=== PATIENT | male | born 2000 | race Caucasian/White ===

== ENCOUNTER 2024-07-01 08:25 | Emergency (ER) | payer OTHER, SELFPAY ==
[2024-07-01] VITALS (8 sets, daily range): BP systolic 84–109; BP diastolic 46–62; PULSE 98–134; RESP 14–18; TEMP 36.6–36.9; O2SAT 96–100; BMI 25.1
--- NOTE | 2024-07-01 | ECG_ITS ---
Test Reason : seizure Blood Pressure : */* mmHG Vent. Rate : 115 BPM Atrial Rate : 115 BPM P-R Int : 118 ms QRS Dur : 78 ms QT Int : 314 ms P-R-T Axes : 41 93 67 degrees QTcB Int : 434 ms Sinus tachycardia Rightward axis Borderline ECG No previous ECGs available Referred By: Generic ED Physician Electronically Signed By: Lopez Borden
--- NOTE | ~2024-07-01 | XR_ITS ---
EXAMINATION: XR CHEST CLINICAL INFORMATION: Seizure COMPARISON: None available. TECHNIQUE: Frontal view of the chest was obtained. FINDINGS: No consolidation, pleural effusion or pneumothorax. No hyperinflation. Cardiomediastinal silhouette is normal in size. S-shaped curvature of the cervical thoracic spine which could be positional. XR/XR chest 1V IMPRESSION: No acute airspace disease. No acute fractures. Electronically signed by: Saqib Ramirez MD 07/01/2024 09:54 AM ROEL
--- NOTE | 2024-07-01 08:39 | ED_ITS ---
HPI - Seizure General Chief Complaint: Seizure Stated Complaint: SZ,POST ICTAL,HR 150 PER EMS Time Seen by Provider: 07/01/24 08:37 Source: patient, EMS, RN notes reviewed and old records reviewed Mode of arrival: EMS History of Present Illness ED Provider: Erika Everett PA-C HPI Narrative: 24-year-old male with a past medical history of autism, seizures on Lamictal, presenting to the ED via EMS s/p witnessed tonic-clonic seizure in van on way to daycare [employer]. Per EMS seizure lasted about 5 minutes without tongue biting or incontinence. No reported trauma/head injury. Patient denies complaints at present. Most history obtained from patient's parents who report is difficult to say if patient is compliant with medications, and mother is almost certain patient did not take medications this morning. Denies recent illness including fever, chills, cough, abdominal pain, nausea/vomiting, injury. Related Data Allergies Allergy/AdvReac Type Severity Reaction Status Date / Time No Known Allergies Allergy Verified 07/01/24 08:31 [No Known Allergies*] Review of Systems 2 Review of Systems: Yes all other systems are reviewed and are negative Constitutional: Constitutional: Reports as per [facility] Past Medical History Attestation statement: The following information was validated with the patient. Source: old records reviewed Social History Social History Advance Directives: No Advance Directives Information Provided: No Do you have a plan to hurt others: No Plan Physical Exam 2 Vital Signs: Vital Signs: Last Vital Signs Temp 98.2 F 07/01/24 10:32 Pulse 98 07/01/24 10:32 Resp 18 07/01/24 10:32 BP 109/54 L 07/01/24 10:32 Pulse Ox 100 07/01/24 10:32 O2 Del Method Room Air 07/01/24 10:32 BMI result Body Mass Index 25.1 Const: General: cooperative, healthy appearing and no acute distress O rientation/consciousness: oriented to person and oriented to time L imitations: no limitations HEENT: Head: Yes normal to inspection and Yes atraumatic Ears: hearing grossly normal bilaterally General nose exam: Normal external nose present Face and sinus: Yes normal facial exam Mouth: Normal oral and palatal mucosa present Throat: Yes posterior oropharynx normal, Yes tonsils normal, Yes uvula midline and No peritonsillar mass Eyes: General: appearance normal, both eyes and all related structures P upils: Equal, round and reactive pupils present EOM: EOMs intact bilaterally Neck: Neck: Yes normal visual inspection and Yes no meningeal signs Resp: Effort & Inspection: normal respiratory effort and no respiratory distress Auscultation: clear to auscultation bilaterally, no crackles and no wheezes Cardio: Rate: regular rate Heart sounds: S1 normal heart sound present and S2 normal heart sound present GI: Inspection: Yes normal to inspection Palpation (GI): Soft to palpation, nontender, no guarding and not rigid Back/Spine/Pelvis: Other: No midline cervical/thoracic/lumbar spinous tenderness/step-off or deformity Skin: Rashes: no rashes Wounds: no wounds Neuro: Other: baseline Autism - thought he was at [facility] General: oriented to person, oriented to time, tone normal, moves all extremities, no meningeal signs, no focal motor deficits and CN's II-XI intact bilaterally Cranial nerves: Yes CN's II-XII intact bilaterally, Yes Equal, round and reactive pupils present and Yes Bilaterally intact EOM present Gait exam (Neuro): Normal gait present Motor exam (neuro): 5/5 motor strength present throughout Extrem: General: Yes normal to inspection Course Course Course Narrative: -labs reassuring. Lamictal level pending -viral testing negative XR chest 1V IMPRESSION: No acute airspace disease. No acute fractures. > blood pressure improving since ED arrival -patient was able to supply urine sample, will not wait for results prior to discharge. I will contact if positive > Results discussed with patient including worrisome signs and symptoms and strict return precautions, and when to return to the emergency department. They verbalized understanding and feel safe for discharge at this time. Medications Administered Discontinued Medications Generic Name Dose Route Start Last Admin Trade Name Freq PRN Reason Stop Dose Admin Sodium Chloride 1,000 mls @ 999 mls/hr 07/01/24 09:00 07/01/24 11:42 Ns IV 07/01/24 10:00 Infused .Q1H1M DIANA Infusion Sodium Chloride 1,000 mls @ 999 mls/hr 07/01/24 09:00 07/01/24 11:42 Ns IV 07/01/24 10:00 Infused .Q1H1M DIANA Infusion Sodium Chloride 1,000 mls @ 999 mls/hr 07/01/24 10:30 07/01/24 11:42 Ns IV 07/01/24 11:30 Infused .Q1H1M DIANA Infusion Lamotrigine 300 mg 07/01/24 09:05 07/01/24 09:16 Lamotrigine 100 Mg Tablet PO 07/01/24 09:06 300 mg ONCE ONE Administration Lorazepam 1 mg 07/01/24 08:55 07/01/24 09:03 Lorazepam 2 Mg/Ml Vial IVPUSH 07/01/24 08:56 1 mg ONCE ONE Administration Medical Decision Making Medical Decision Making MDM Narrative: 24-year-old male with a past medical history of autism, seizures on Lamictal, presenting to the ED via EMS s/p witnessed tonic-clonic seizure in van on way to daycare [employer]. On exam hypotensive, tachycardic, NAD, nontoxic appearing, acting appropriate, no evidence of trauma/incontinence or tongue biting. Concern for breakthrough seizure secondary to medication noncompliance. Rule out metabolic infectious etiologies. Low suspicion for severe sepsis Plan: EKG, labs, UA, CXR, viral studies, IVF, IV Ativan, dose patient's p.o. Lamictal, re-evaluate Please refer to course for remaining clinical decision making, interpretation of labs/imaging results, and discussions with consultants and/or family members. Differential Diagnosis Differential Diagnoses: The differential diagnosis associated with the presentation includes As above Admission/Observation Consideration of admission/observation: Escalation of care including admission/observation considered Lab Data [facility] Lab Attestation statement: I reviewed the patient's lab results. 07/01/24 09:10 07/01/24 09:10 Labs: Lab Results 07/01/24 07/01/24 07/01/24 Range/Units 09:06 09:10 09:10 WBC 6.7 (4.8-10.8) X10*3/uL RBC 5.17 (4.60-5.80) X10*6/uL Hgb 15.8 (14.0-18.0) g/dl Hct 46.3 (42.0-52.0) % MCV 89.6 (80.0-98.0) fL MCH 30.6 (27.0-33.0) pg MCHC 34.1 (31.0-36.0) g/dl RDW 11.9 (11.0-16.0) % Plt Count 226 (160-400) X10*3/uL MPV 9.5 (9.4-12.4) fL Immature Gran % (Auto) 1.1 H (0.0-0.4) % Neut % (Auto) 57.7 (45-73) % Lymph % (Auto) 30.6 (20-40) % Mineral % (Auto) 6.5 (2-11) % Eos % (Auto) 3.6 (0-4) % Baso % (Auto) 0.5 (0-2) % Lymph # (Auto) 2.0 (1.2-4.9) X10*3/uL Mineral # (Auto) 0.4 (0.1-1.2) X10*3/uL Eos # (Auto) 0.2 (0.0-0.4) X10*3/uL Baso # (Auto) 0.0 (0.0-0.2) X10*3/uL Abs Immat Gran (auto) 0.07 H (0.00-0.03) X10*3/uL Absolute Neuts (auto) 3.9 (2.0-8.3) x10*3/uL Absolute Nucleated RBC 0.000 (0.0-0.012) X10*3/uL Nucleated RBC % (auto) 0.0 (0.0-0.2) /100WBC Sodium 138 (135-145) mmol/L Potassium 4.8 (3.3-5.1) mmol/L Chloride 106 (96-108) mmol/L Carbon Dioxide 22 (22-29) mmol/L Anion Gap 15 (12-20) BUN 12 (9-16) mg/dL Creatinine 1.25 (0.5-1.4) mg/dL Estim Creat Clear Calc 87.4 Estimated GFR > 60 Random Glucose 121 H (60-115) mg/dL Calcium 9.0 (8.4-10.2) mg/dL Magnesium 2.2 2.2 (1.6-2.6) mg/dL Total Bilirubin 0.6 (0.0-1.0) mg/dL AST 22 (5-37) U/L ALT 28 (0-40) U/L Alkaline Phosphatase 59 (39-117) U/L Total Protein 6.8 (6.5-8.0) g/dL Albumin 4.4 (3.5-5.0) g/dL Influenza Type A (PCR) NEGATIVE (Negative) Influenza Type B (PCR) NEGATIVE (Negative) RSV RNA Qual (PCR) NEGATIVE (Negative) SARS-CoV-2 RNA (RT-PCR) NEGATIVE (Negative) Independent Interpretation I performed an independent interpretation of an: EKG (My interpretation EKG sinus tachycardia rate of 115. NJ interval 118. QTC 434. No STEMI. ) Radiology Impression Discussion of test interpretation with radiology: I have reviewed the radiologist's reading. Independent Historian Clinical information obtained from an independent historian. History obtained from or confirmed by: Parent and EMS External Record Review External record reviewed: Inpatient record, Office record, Outpatient record, Prior outpatient labs, Prior outpatient radiology, Primary care record and Outside ED record Tests considered The following testing was considered but not selected: As above Prescription Management I considered prescription management with: Pain Medication Chronic Conditions Patient?s care impacted by: Other (Seizures, autism) Social Determinants Patient?s care significantly limited by Social Determinants of Health including: Problems related to primary support group and Other Social Determinant of Health Discharge Plan Discharge Clinical Impression: Breakthrough seizure Patient Disposition: Home, Self-Care Instructions: Epilepsy (DC) Additional Instructions: Your blood work is reassuring Please have close follow-up with your neurologist and her primary care doctor Avoid missing any doses of your medications specifically your seizure medications If you have recurrent or persistent seizures, fever, chills, cough return to the emergency room Referrals: Vito Vitale MD [Primary Care Provider] - 3 days Print Language: Sami
[2024-07-01] MEDS: 0.9 % Sodium Chloride 1,000 ML 999 ML IV ×3 (09:03→10:32)
[2024-07-01] MEDS: LORazepam 2 MG/ML VIAL 1 MG IVPUSH (09:03)
[2024-07-01 09:13] LABS: MANUAL DIFF FLAG NO
[2024-07-01] MEDS: lamoTRIgine 100 MG TABLET 300 MG PO (09:16)
[2024-07-01 09:17] LABS: Basophils Percent Auto 0.5 % (0-2); Eosinophils Absolute Auto 0.2 X10*3/uL (0.0-0.4); Eosinophils Percent Auto 3.6 % (0-4); Hematocrit 46.3 % (42.0-52.0); Hemoglobin 15.8 g/dl (14.0-18.0); Imm Gran Abs Auto 0.07 X10*3/uL (0.00-0.03); Imm Gran Pct Auto 1.1 % (0.0-0.4); Lymphocytes Percent Auto 30.6 % (20-40); Mean Corpuscular HGB Conc 34.1 g/dl (31.0-36.0); Mean Corpuscular Hemoglobin 30.6 pg (27.0-33.0); Mean Corpuscular Volume 89.6 fL (80.0-98.0); Mean Platelet Volume 9.5 fL (9.4-12.4); Monocytes Absolute Auto 0.4 X10*3/uL (0.1-1.2); Monocytes Percent Auto 6.5 % (2-11); Neutrophils Absolute Auto 3.9 x10*3/uL (2.0-8.3); Neutrophils Percent Auto 57.7 % (45-73); Platelet Count 226 X10*3/uL (160-400); Red Blood Count 5.17 X10*6/uL (4.60-5.80); Red Cell Distribution Width 11.9 % (11.0-16.0); White Blood Count 6.7 X10*3/uL (4.8-10.8)
[2024-07-01 09:33] LABS: Alanine Aminotransferase 28 U/L (0-40); Albumin Level 4.4 g/dL (3.5-5.0); Alkaline Phosphatase 59 U/L (39-117); Anion Gap 15 (12-20); Aspartate Amino Transferase 22 U/L (5-37); Bilirubin Total 0.6 mg/dL (0.0-1.0); Blood Urea Nitrogen 12 mg/dL (9-16); Carbon Dioxide 22 mmol/L (22-29); Chloride 106 mmol/L (96-108); Creatinine Clr Calc Pharmacy 87.4; Estimated Glomerular Filt Rate > 60; Glucose Random 121 mg/dL (60-115); Magnesium 2.2 mg/dL (1.6-2.6); Potassium 4.8 mmol/L (3.3-5.1); Sodium 138 mmol/L (135-145); Total Protein 6.8 g/dL (6.5-8.0)
[2024-07-01 09:34] LABS: Magnesium 2.2 mg/dL (1.6-2.6)
[2024-07-01 10:11] LABS: Influenza A PCR NEGATIVE (Negative); Influenza B PCR NEGATIVE (Negative); Resp Syncy Virus RNA Qual PCR NEGATIVE (Negative); SARS COV2 PCR INHOUSE NEGATIVE (Negative)
[2024-07-01 12:50] LABS: Appearance Urine Clear; Color Urine Yellow; Glucose Urine UA Negative (Negative); Leukocyte Esterase Urine Negative (Negative); Nitrite Urine Negative (Negative); Urine Blood Negative (Negative); Urine Ketones Negative (Negative); Urine Protein Trace mg/dL (Neg-Trace)
[2024-07-05 02:24] LABS: Lamotrigine Lamictal 6.9 mcg/mL (2.5-15.0)
== END 2024-07-01 12:43 | disposition home or self-care (01) ==
PROVIDERS: Physician Assistant; Emergency Provider Emergency Medicine; PCP Internal Medicine
DX: G40.409 Other generalized epilepsy and epileptic syndromes, not intractable, without status epilepticus (principal); Z03.818 Encounter for observation for suspected exposure to other biological agents ruled out
CPT/HCPCS: 0241U; 36415; 71045; 80053; 80175; 81003; 83735; 85025; 93005; 96361; 96374; 99284; J2060

== ENCOUNTER → 2024-07-01 08:46 | Outpatient (BNV) | payer OTHER, SELFPAY | PROVIDERS: Emergency Provider Emergency Medicine; PCP Internal Medicine; Visit Provider Radiology Diagnostic Radiology | DX: G40.89 Other seizures (principal) | CPT/HCPCS: 71045 ==

== ENCOUNTER → 2024-07-01 08:52 | Outpatient (BNV) | payer OTHER, SELFPAY | PROVIDERS: Emergency Provider Emergency Medicine; PCP Internal Medicine; Visit Provider Internal Medicine Cardiovascular Disease | DX: R00.0 Tachycardia, unspecified (principal) | CPT/HCPCS: 93010 ==